=== PATIENT | female | born 1960 | race Two or more races ===

== ENCOUNTER 2020-05-03 09:30 | Inpatient (IN) | payer OTHER ==
[~2020-05-03] VITALS: Ht 152.4 cm; Wt 66.7 kg
[2020-05-03] MEDS ORDERED: LANTUS SOL100 UNIT/1 (11:46)
[2020-05-03] MEDS ORDERED: GEMFIBROZIL600 MG PO (11:47)
[2020-05-03] MEDS ORDERED: SYNTHROID200 MCG PO (11:47)
[2020-05-03] MEDS ORDERED: METFORMIN HCL1000 M2 PO (11:47)
[2020-05-03] MEDS ORDERED: CRESTOR10 MG PO (11:47)
[2020-05-03] MEDS ORDERED: ZETIA10 MG PO (11:48)
[2020-05-25] MEDS ORDERED: OXYC1TAB9 PO (12:48)
[2020-05-25] MEDS ORDERED: POLY119PG PO (12:49)
== END 2020-05-25 14:35 | disposition home or self-care (01) | DRG 330 ==
LOC: SURH 05-10 09:30 → O/R 05-13 07:23 → SURH 05-13 07:23
PROVIDERS: ADMIT Surgery; ATTEND Surgery
PROC: 07BB4ZZ Excision of Mesenteric Lymphatic, Percutaneous Endoscopic Approach (ICD-10-PCS; 2020-05-13)
PROC: 0DTF4ZZ Resection of Right Large Intestine, Percutaneous Endoscopic Approach (ICD-10-PCS; principal; 2020-05-13 05:15)
PROC: 4A12X4Z Monitoring of Cardiac Electrical Activity, External Approach (ICD-10-PCS; 2020-05-15)
PROC: BW2110Z Computerized Tomography (CT Scan) of Abdomen and Pelvis using Low Osmolar Contrast, Unenhanced and Enhanced (ICD-10-PCS; 2020-05-20)
PROC: 02HV33Z Insertion of Infusion Device into Superior Vena Cava, Percutaneous Approach (ICD-10-PCS; 2020-05-20)
DX: D12.0 Benign neoplasm of cecum (principal); I97.191 Other postprocedural cardiac functional disturbances following other surgery; K91.30 Postprocedural intestinal obstruction, unspecified as to partial versus complete; R00.0 Tachycardia, unspecified; E05.80 Other thyrotoxicosis without thyrotoxic crisis or storm; D64.9 Anemia, unspecified; E88.09 Other disorders of plasma-protein metabolism, not elsewhere classified; R59.0 Localized enlarged lymph nodes; E11.65 Type 2 diabetes mellitus with hyperglycemia; Z79.4 Long term (current) use of insulin; Z20.822 Contact with and (suspected) exposure to COVID-19